=== PATIENT | female | born 1960 | race Caucasian/White ===

== ENCOUNTER 2023-06-27 10:36 | Outpatient (CLI) | payer MEDICARE, SELFPAY ==
[2023-06-27 10:25] LABS: Abs Immature Grans 0.01 10^3/uL (0.0-0.06); Absolute Basophil Count 0.06 10^3/uL (0.0-0.2); Absolute Lymphocyte Count 1.05 10^3/uL (1.2-3.4); Absolute Monocyte Count 0.26 10^3/uL (0.1-0.8); Absolute Neutrophil Count 2.32 10^3/uL (1.2-6.7); Basophils % 1.6; Eosinophils % 2.6; HCT 39.3 % (36.0-46.0); HGB 13.1 g/dL (11.2-15.7); Immature Grans % 0.3; Lymphocytes % 27.6; MCH 31.5 pg (27.0-33.0); MCHC 33.3 % (32.0-36.0); MCV 95 fL (80-95); MPV 11.2 fL (8.0-11.0); Monocytes % 6.8; Neutrophils % 61.1; Platelet Count 145 10^3/uL (130-400); RBC 4.16 10^6/uL (3.93-5.22); RDW 11.7 % (11.7-14.6); RDW-SD 40.3 fL
[2023-06-27 11:27] LABS: Hemoglobin A1C 5.4 % (<5.7)
[2023-06-27 11:55] LABS: Vitamin D 25 Total 64.5 ng/mL (30-100)
[2023-06-27 12:00] LABS: ALT 26 U/L (14-59); AST 19 U/L (15-37); Albumin 3.5 g/dL (3.4-5.0); Alkaline Phosphatase 79 U/L (46-116); Anion Gap 5.5 mmol/L (3-11); BUN 17 mg/dL (7-18); Bilirubin, Total 0.5 mg/dL (0.2-1.0); CO2 30.5 mmol/L (21.0-32.0); Calcium 9.1 mg/dL (8.5-10.1); Calculated LDL 141 mg/dL (<100); Chloride 103 mmol/L (98-107); Cholesterol 253 mg/dL (<200); Estimated GFR 62.52 (mL/min/1.73m2); Glucose 92 mg/dL (74-106); HDL Cholesterol 104 mg/dL (40-60); Potassium 4.4 mmol/L (3.5-5.1); Sodium 139 mmol/L (136-145); TSH (W/Ref FT4) 0.43 uIU/mL (0.36-3.74); Total Protein 7.2 g/dL (6.4-8.2); Triglyceride 40 mg/dL (<150); Vitamin B12 219 pg/mL (193-986)
[2023-06-27 18:41] LABS: HIV-1/2 Ag & Ab Screen Negative (Negative)
== END 2023-06-27 10:37 | disposition home or self-care (01) ==
LOC: LBO 10:40
PROVIDERS: PCP Nurse Practitioner Family; Visit Provider Nurse Practitioner Family
DX: E03.9 Hypothyroidism, unspecified (principal); E55.9 Vitamin D deficiency, unspecified
CPT/HCPCS: 36415; 80053; 80061; 82306; 87389; 82607; 83036; 84443; 85025

== ENCOUNTER 2023-08-31 05:08 | Outpatient (CLI) | payer MEDICARE, SELFPAY ==
[2023-08-31 13:16] LABS: HCT 36.1 % (36.0-46.0); HGB 12.1 g/dL (11.2-15.7); MCH 31.4 pg (27.0-33.0); MCHC 33.5 % (32.0-36.0); MCV 94 fL (80-95); MPV 11.4 fL (8.0-11.0); Platelet Count 153 10^3/uL (130-400); RBC 3.85 10^6/uL (3.93-5.22); RDW 11.9 % (11.7-14.6); RDW-SD 41.1 fL; WBC 4.87 10^3/uL (4.4-10.8)
[2023-08-31 14:19] LABS: TSH (W/Ref FT4) 1.11 uIU/mL (0.36-3.74)
== END 2023-08-31 05:09 | disposition home or self-care (01) ==
PROVIDERS: PCP Nurse Practitioner Family; Visit Provider Nurse Practitioner Family
DX: E03.9 Hypothyroidism, unspecified (principal); D72.819 Decreased white blood cell count, unspecified
CPT/HCPCS: 36415; 85027; 84443

== ENCOUNTER 2023-11-17 12:14 | Outpatient (CLI) | payer MEDICARE, SELFPAY ==
[2023-11-17 13:12] LABS: TSH (W/Ref FT4) 1.91 uIU/mL (0.36-3.74)
== END 2023-11-17 12:15 | disposition home or self-care (01) ==
LOC: LBO 12:15
PROVIDERS: PCP Nurse Practitioner Family; Visit Provider Nurse Practitioner Family
DX: E03.9 Hypothyroidism, unspecified (principal)
CPT/HCPCS: 36415; 84443

== ENCOUNTER 2023-11-29 21:46 | Outpatient (REF) | payer MEDICARE, SELFPAY ==
[2023-11-29 20:30] LABS: Abs Immature Grans 0.01 10^3/uL (0.0-0.06); Absolute Basophil Count 0.08 10^3/uL (0.0-0.2); Absolute Eosinophil Count 0.12 10^3/uL (0.0-0.7); Absolute Lymphocyte Count 1.65 10^3/uL (1.2-3.4); Absolute Monocyte Count 0.48 10^3/uL (0.1-0.8); Absolute Neutrophil Count 3.09 10^3/uL (1.2-6.7); Basophils % 1.5 %; Eosinophils % 2.2 %; HCT 37.6 % (36.0-46.0); HGB 12.8 g/dL (11.2-15.7); Immature Grans % 0.2 %; Lymphocytes % 30.4 %; MCH 31.5 pg (27.0-33.0); MCV 93 fL (80-95); MPV 12.9 fL (8.0-11.0); Monocytes % 8.8 %; Neutrophils % 56.9 %; Platelet Count 179 10^3/uL (130-400); RBC 4.06 10^6/uL (3.93-5.22); RDW 12.2 % (11.7-14.6); RDW-SD 41.8 fL; WBC 5.43 10^3/uL (4.4-10.8)
== END 2023-11-29 21:47 | disposition home or self-care (01) ==
LOC: LBN 21:46
PROVIDERS: PCP Nurse Practitioner Family; Visit Provider Nurse Practitioner Family
DX: D72.819 Decreased white blood cell count, unspecified (principal)
CPT/HCPCS: 85025